=== PATIENT | female | born 1990 | race African-American/Black ===

== ENCOUNTER 2017-08-30 00:52 | Emergency (ER) | payer MEDICAID ==
[~2017-08-30] VITALS: Ht 157.5 cm; Wt 63.0 kg
[~2017-08-30 00:52] MED LIST: ALBU17AE26; PREDNISONE; ZOFRAN; ZPAK
[2017-08-30] MEDS ORDERED: SODIUM CHLORIDE 0.9% 1,000 ML IV ONE (01:33)
[2017-08-30] MEDS ORDERED: FENTANYL CITRATE/PF 50MCG/ML 2ML VIAL IV ONE (01:45)
[2017-08-30 06:30] VITALS: BP 101/58
== END 2017-08-30 06:54 | disposition home or self-care (01) ==
LOC: ER 00:52
DX: S43.401A Unspecified sprain of right shoulder joint, initial encounter (principal); S53.401A Unspecified sprain of right elbow, initial encounter; W22.8XXA Striking against or struck by other objects, initial encounter; Y93.89 Activity, other specified; Y99.8 Other external cause status; Y92.89 Other specified places as the place of occurrence of the external cause
CPT/HCPCS: 73030; 73060; 81025; 96361; 96374; 99284; J3010; Z7610; A4565; J7030